=== PATIENT | female | born 1970 | race Caucasian/White ===

== ENCOUNTER 2020-07-09 07:58 | Outpatient (CLI) | payer OTHER, SELFPAY | END 2020-07-09 07:59 | disposition home or self-care (01) | LOC: ANHCOVIDVC 07:58 | PROVIDERS: PCP Family Medicine | DX: Z23 Encounter for immunization (principal) | CPT/HCPCS: 0001A; 91300 ==

== ENCOUNTER 2020-07-30 08:02 | Outpatient (CLI) | payer OTHER, SELFPAY | END 2020-07-30 08:03 | disposition home or self-care (01) | LOC: ANHCOVIDVC 08:02 | PROVIDERS: PCP Family Medicine | DX: Z23 Encounter for immunization (principal) | CPT/HCPCS: 0002A; 91300 ==